=== PATIENT | female | born 1985 | race Caucasian/White ===

== ENCOUNTER → 2020-05-24 | Emergency (ER) | payer OTHER ==
[~2020-05-24] VITALS: Ht 157.5 cm; Wt 54.4 kg
[~2020-05-24] MED LIST: OMEPRAZOLE20 M1 PO; ONDANSETRON HCL4 M2 PO
[2020-05-24 09:35] VITALS: BP 155/82
[2020-05-24 10:22] LABS: URINE BILIRUBIN NEGATIVE (Negative); URINE BLOOD NEGATIVE (Negative); URINE CLARITY CLEAR; URINE COLOR YELLOW; URINE GLUCOSE-RANDOM* NEGATIVE (Negative); URINE KETONES 1+ (Negative); URINE LEUKOCYTES-REFLEX NEGATIVE (Negative); URINE NITRITE-REFLEX NEGATIVE (Negative); URINE PROTEIN (DIPSTICK) NEGATIVE (Negative); URINE SPECIFIC GRAVITY <= 1.005 (1.005-1.035); URINE UROBILINOGEN 0.2 E.U./dl (0.2-1.0)
== END ==
LOC: ER 09:31
PROVIDERS: Emergency Medicine
DX: M54.5 Low back pain (principal); R11.0 Nausea; R35.0 Frequency of micturition; Z53.21 Procedure and treatment not carried out due to patient leaving prior to being seen by health care provider

== ENCOUNTER 2021-07-18 15:03 | Emergency (ER) | payer OTHER ==
[~2021-07-18] VITALS: Ht 157.5 cm; Wt 54.4 kg
[2021-07-18 15:42] LABS: HEMATOCRIT 37.1 % (37.0-47.0); HEMOGLOBIN 12.1 gm/dL (12.0-15.0); MCH 28.8 pg (26.0-34.0); MCHC 32.6 g/dL (28.0-37.0); MCV 88.4 fL (80.0-100.0); RBC 4.2 mil/uL (4.20-5.00); RDW 14.4 % (10.5-14.5); WBC 5.1 thou/uL (4.0-11.0)
[2021-07-18 17:12] VITALS: BP 116/84
[2021-07-18] MEDS ORDERED: NORCO5 PO (22:27)
== END 2021-07-18 17:12 | disposition home or self-care (01) ==
LOC: ER 15:03
PROVIDERS: Nurse Practitioner Family
DX: O20.0 Threatened abortion (principal); Z3A.01 Less than 8 weeks gestation of pregnancy; Z79.899 Other long term (current) drug therapy

== ENCOUNTER 2021-07-18 21:05 | Emergency (ER) | payer OTHER ==
[~2021-07-18] VITALS: Ht 157.5 cm; Wt 54.4 kg
[2021-07-18 21:44] LABS: HEMATOCRIT 33.7 % (37.0-47.0); HEMOGLOBIN 11.5 gm/dL (12.0-15.0); MCH 29.7 pg (26.0-34.0); MCV 87.3 fL (80.0-100.0); RBC 3.86 mil/uL (4.20-5.00); RDW 14.6 % (10.5-14.5); WBC 7.3 thou/uL (4.0-11.0)
[2021-07-18 22:00] LABS: ALBUMIN 3.5 g/dL (3.4-5.0); CALCIUM 8.5 mg/dL (8.5-10.1); CREATININE 0.8 mg/dL (0.6-1.0); TOTAL BILIRUBIN 0.3 mg/dL (0.2-1.0); TOTAL PROTEIN 6.8 g/dL (6.4-8.2)
[2021-07-18 22:19] LABS: POTASSIUM 3.5 mmol/L (3.5-5.1)
[2021-07-18] MEDS ORDERED: NORCO5 PO (22:27)
[2021-07-18 22:45] VITALS: BP 114/77
--- NOTE | 2021-07-22 16:06 | PATH ---
[facility] [address] [place] [address] PATHOLOGY RPT PROCEDURE Name: LAURELCHRISTOPHER Room #: DEP TAINA Yanez#: [id number] Admission: 07/18/21 Date of : 85 Discharge: 07/18/21 Report #: [id number] Path Case #: [id number] [facility] Accession Number: [id number] . 01 Material submitted: . product of conception - PRODUCT OF CONCEPTION . 02 Diagnosis: Endometrium at first trimester chorionic villi (products of conception): - Decidualized endometrium with necrosis, acute and chronic inflammation are identified in conjunction with first trimester chorionic villi with myxoid degenerative changes. (SWK:harjinder; 07/22/2021) S 07/22/2021 1344 Local . 02 Comment: Variable sized villi are identified which raise the possibility of partial molar . Will be referred on for ploidy to further evaluate this. (SWK:harjinder; 07/22/2021) . 02 Electronically signed: . Cristobal Ibrahim MD, Pathologist NPI- [id number] . 01 Gross description: . The specimen is received in formalin, labeled "Christopher Arteaga, products of conception". Received is a segment of pale alex to pink-no tissue with attached spongiform tissue measuring 3.8 x 2.1 x 1.0 cm in greatest dimensions. or embryonic tissue is not grossly identified. Vesicular structures are absent. The specimen is submitted representatively in cassettes A1 through A3. (CAA; 07/20/2021) QAC/QAC 07/20/2021 1151 Local . 02 Pathologist provided ICD-10: Z03.89 . 02 CPT . 965233 Specimen Comment: A courtesy copy of this report has been sent to [phone] Specimen Comment: Report sent to Specimen Comment: A duplicate report has been generated due to demographic updates. Performed at: [address] [facility], [place] [id number] MD Andrea Self MD Phone: [phone] [place] [address] PATHOLOGY RPT PROCEDURE Name: CHRISTOPHER ARTEAGA Room #: DEP TAINA Yanez#: [id number] Admission: 07/18/21 Date of : 85 Discharge: 07/18/21 Report #: [id number] Path Case #: [id number] Performed at: [address] [id number] MD Cristobal Ibrahim MD Phone: [phone]
== END 2021-07-18 22:48 | disposition home or self-care (01) ==
LOC: ER 21:05
PROVIDERS: Nurse Practitioner Family
DX: O03.9 Complete or unspecified spontaneous abortion without complication (principal); Z79.899 Other long term (current) drug therapy